=== PATIENT | male | born 1990 | race Caucasian/White ===

== ENCOUNTER 2018-06-07 11:24 | Emergency (ER) | payer SELFPAY ==
[~2018-06-07] VITALS: Ht 188 cm; Wt 67.3 kg
[2018-06-07] MEDS ORDERED: MOTRIN600 MG PO (15:02)
[2018-06-07] MEDS ORDERED: KEFLEX500 MG PO (15:02)
[2018-06-07 15:13] VITALS: BP 124/78
== END 2018-06-07 15:14 | disposition home or self-care (01) ==
LOC: EME 11:24
DX: L02.511 Cutaneous abscess of right hand (principal); J02.9 Acute pharyngitis, unspecified; F17.200 Nicotine dependence, unspecified, uncomplicated; Z88.6 Allergy status to analgesic agent
CPT/HCPCS: 87070; 87075; 87077; 87186; 87205; 99281; 99283